=== PATIENT | female | born 2000 | race Caucasian/White ===

== ENCOUNTER 2024-05-13 16:17 | Emergency (ER) | payer OTHER ==
[~2024-05-13] VITALS: Ht 170.2 cm; Wt 53.5 kg
[2024-05-13] MEDS ORDERED: Triamcinolone Inj Susp 40 MG / ML 1ML Vial IM ONE (19:35)
[2024-05-13] MEDS ORDERED: Triamcinolone A15 G3 TOP (19:37)
[2024-05-15 13:04] LABS: Chlamydia Trachomatis Vaginal NOT DETECTED (NOT DETECT)
[2024-05-15 13:46] LABS: Neisseria Gonorrhoea Vaginal DETECTED (NOT DETECT)
== END 2024-05-13 19:59 | disposition home or self-care (01) ==
LOC: ER 16:17
PROVIDERS: Physician Assistant
DX: L23.7 Allergic contact dermatitis due to plants, except food (principal); Z11.3 Encounter for screening for infections with a predominantly sexual mode of transmission
CPT/HCPCS: 0353U; 81025; 96372; 99283-25; J3301